=== PATIENT | female | born 1985 | race Two or more races ===

== ENCOUNTER 2020-07-12 14:11 | Outpatient (REF) | payer MEDICAID, SELFPAY | END 2020-07-12 14:12 | disposition home or self-care (01) | LOC: HO.LAB 14:11 | PROVIDERS: Visit Provider Internal Medicine | DX: Z20.822 Contact with and (suspected) exposure to COVID-19 (principal) | CPT/HCPCS: C9803; U0003; U0005 ==

== ENCOUNTER → 2021-08-16 11:21 | Outpatient (BNVA) | payer MEDICAID, SELFPAY | PROVIDERS: Visit Provider Advanced Practice Midwife | DX: O09.299 Supervision of pregnancy with other poor reproductive or obstetric history, unspecified trimester (principal); O09.529 Supervision of elderly multigravida, unspecified trimester; Z3A.00 Weeks of gestation of pregnancy not specified | CPT/HCPCS: 99202 ==

== ENCOUNTER 2021-09-07 11:16 | Outpatient (REF) | payer MEDICAID, SELFPAY ==
[2021-09-07 13:16] LABS: Hematocrit 35.7 % (37.0-47.0); Hemoglobin 11.7 g/dl (12.0-16.0); Mean Corpuscular HGB Conc 32.8 g/dl (31.0-35.0); Mean Corpuscular Hemoglobin 27.9 pg (27.0-33.0); Mean Platelet Volume 10.2 fL (9.4-12.3); Platelet Count 354 X10*3/uL (160-400); Red Cell Distribution Width 17.1 % (11.0-16.0); White Blood Count 13.4 X10*3/uL (4.8-10.8)
[2021-09-07 13:43] LABS: Alanine Aminotransferase 13 U/L (0-31); Aspartate Amino Transferase 16 U/L (5-31); Blood Urea Nitrogen 11 mg/dL (9-16); Estimated Glomerular Filt Rate > 60; Uric Acid 3.6 mg/dL (2.4-5.7)
[2021-09-07 13:58] LABS: Syphilis Screen Nonreactive (Nonreactive)
[2021-09-07 14:25] LABS: Creatinine Urine 165.56 mg/dL; Protein/Creatinine Ratio, Ur 0.08 (<0.2); Total Protein Urine Random 14 mg/dL (<12)
[2021-09-07 14:26] LABS: Fentanyl, urine Not Detected (Not Detect)
[2021-09-07 14:32] LABS: Amphetamine Screen Urine Not Detected (Not Detect); Barbiturates, Urine Not Detected (Not Detect); Cannabinoid Screen Urine Not Detected (Not Detect); Cocaine Screen Urine Not Detected (Not Detect); Opiate Screen Urine Not Detected (Not Detect); Phencyclidine Screen Urine Not Detected (Not Detect)
[2021-09-08 08:43] LABS: Benzodiazepines Screen Urine NOT DETECTED (Not Detect)
[2021-09-08 09:00] LABS: HBsAGNum1 0.17 S/CO (0.00-0.99); HIV AB/AG Nonreactive (Nonreactive); HIV Num 1 0.11 S/CO (0.00-0.99); Hepatitis B Surface Antigen Negative (Negative); ~HepC Num1 0.08 S/CO (0.00-0.79); ~Hepatitis C Antibody Nonreactive (Nonreactive)
[2021-09-09 02:17] LABS: Rubella IgG Antibody <0.90 Index
[2021-09-09 21:02] LABS: Hematocrit 35.5 % (35.0-45.0); Hemoglobin 11.8 g/dL (11.7-15.5); MCH 27.9 pg (27.0-33.0); MCV 83.9 fL (80.0-100.0); RBC 4.23 Million/uL (3.80-5.10); RDW 16.1 % (11.0-15.0)
== END 2021-09-07 11:17 | disposition home or self-care (01) ==
LOC: HO.LAB 11:16
PROVIDERS: PCP Internal Medicine; Visit Provider Advanced Practice Midwife
DX: O09.299 Supervision of pregnancy with other poor reproductive or obstetric history, unspecified trimester (principal)
CPT/HCPCS: 80307; 82565; 83020; 84156; 84450; 84460; 84520; 84550; 85014; 85018; 85027; 85041; 86762; 86780; 86787; 86803; 86850; 86900; 87086; 87147; 87340; 87389; 99212

== ENCOUNTER 2021-09-15 11:26 | Outpatient (REF) | payer MEDICAID, SELFPAY ==
[2021-09-15 14:41] LABS: CT PCR NOT DETECTED (Not Detect.); NG PCR NOT DETECTED (Not Detect.)
[2021-09-16 09:50] LABS: BV Int Neg Control Negative (Negative); BV Int Pos Control Positive (Positive)
[2021-09-24 08:31] LABS: HPV 16 RNA NOT DETECTED (NOT DETECTED); HPV mRNA E6/E7 rflx Detected (Not Detected)
== END 2021-09-15 11:27 | disposition home or self-care (01) ==
LOC: HO.LAB 11:26
PROVIDERS: Visit Provider Advanced Practice Midwife
DX: Z11.51 Encounter for screening for human papillomavirus (HPV) (principal); O09.291 Supervision of pregnancy with other poor reproductive or obstetric history, first trimester; O09.521 Supervision of elderly multigravida, first trimester; O26.891 Other specified pregnancy related conditions, first trimester; R03.0 Elevated blood-pressure reading, without diagnosis of hypertension; Z22.330 Carrier of Group B streptococcus; Z3A.10 10 weeks gestation of pregnancy
CPT/HCPCS: 81003; 87480; 87491; 87510; 87591; 87624; 87625; 87660; 88142; 99212

== ENCOUNTER 2021-09-23 08:33 | Outpatient (REF) | payer MEDICAID, SELFPAY ==
--- NOTE | ~2021-09-23 | US_ITS ---
EXAMINATION: OBSTETRICAL ULTRASOUND, FIRST TRIMESTER HISTORY: 35-year-old at 11.6 weeks of gestation NT screening COMPARISON: None TECHNIQUE: Real time transabdominal imaging with color and M-mode Doppler. FINDINGS: A single, live IUP CRL of 61.0 mm c/w 12.4wks is noted. Heart Rate: 167 beats per minute. Normal yolk sac seen. NT was 2.6.mm. NB Present The embryo appears sonographically wnl for this GA. An anechoic cyst measuring 2.4 x 2.2 x 2.8 cm is seen in the left ovary. The right ovary is normal. GESTATIONAL AGE: 1. Established GA: 11.6 wks 2. GA from AUA: 12.4 wks ESTIMATED DATE OF DELIVERY: 1. Established CHELY: 04/08/2022 2. CHELY from AUA: 04/03/2022 US/US OB 1T nuc measure IMPRESSION: 1. A single live IUP 2. Size equals dates 3. NT of 2.6 mm MFM Consultation: I reviewed the ultrasound findings along with significance of NT measurement. The NT of less than 3mm is generally reassuring. However, the sensitivity for T21 detection is only 60%. I reviewed the availability of serum aneuploidy screening which includes cell-free DNA and placental protein based tests. I discussed the sensitivity, false-positive rate, and other limitations associated with each test. I also reviewed the availability of invasive diagnostic tests that are associated small but definite risk of miscarriage. We also reviewed the differences between screening tests and diagnostic tests. After our discussion, she opted for the First trimester screening that is based on cell-free DNA or non-invasive testing (NIPT). The result will be faxed to your office in approximately 7 days. A follow up at 18 weeks for survey has been scheduled. Thank you very much for this referral. Total time 20 minutes. The time spent was devoted to counseling the patient about the disease and diagnosis, coordinating care including reviewing her records, pertinent lab data and studies, as well as discussing diagnostic evaluation and workup, plan therapeutic interventions and future disposition of care. This includes any additional research needed to obtain further information in formulating the plan of care of this patient. This note was generated with a voice recognition program. Please excuse any errors which may have been overlooked during my review of this note. Sometimes these errors may affect the content or meaning of a given sentence.
== END 2021-09-23 08:34 | disposition home or self-care (01) ==
LOC: HO.US 08:33
PROVIDERS: Visit Provider Advanced Practice Midwife
DX: O09.291 Supervision of pregnancy with other poor reproductive or obstetric history, first trimester (principal); O09.521 Supervision of elderly multigravida, first trimester; O26.891 Other specified pregnancy related conditions, first trimester; R03.0 Elevated blood-pressure reading, without diagnosis of hypertension; Z3A.11 11 weeks gestation of pregnancy
CPT/HCPCS: 76813

== ENCOUNTER 2021-10-13 11:38 | Outpatient (REF) | payer MEDICAID, SELFPAY | END 2021-10-13 11:39 | disposition home or self-care (01) | LOC: HO.LAB 11:38 | PROVIDERS: PCP Internal Medicine; Visit Provider Advanced Practice Midwife | DX: Z34.92 Encounter for supervision of normal pregnancy, unspecified, second trimester (principal); Z3A.14 14 weeks gestation of pregnancy | CPT/HCPCS: 81003; 99212 ==

== ENCOUNTER → 2021-11-10 11:25 | Outpatient (BNVA) | payer MEDICAID, SELFPAY | PROVIDERS: PCP Internal Medicine; Visit Provider Advanced Practice Midwife | DX: O09.522 Supervision of elderly multigravida, second trimester (principal); O09.292 Supervision of pregnancy with other poor reproductive or obstetric history, second trimester; Z3A.18 18 weeks gestation of pregnancy | CPT/HCPCS: 99212 ==

== ENCOUNTER 2021-11-17 09:01 | Outpatient (REF) | payer MEDICAID, SELFPAY ==
[2021-11-17 11:11] LABS: Glucose 1 Hour PP 50gm Dose 134 mg/dL (60-140)
[2021-11-17 11:51] LABS: Appearance Urine Clear; Color Urine Yellow; Glucose Urine UA Negative (Negative); Leukocyte Esterase Urine Moderate (2+) (Negative); Nitrite Urine Negative (Negative); Urine Blood Negative (Negative); Urine Ketones Negative (Negative); Urine Protein Negative (Neg-Trace)
[2021-11-17 11:52] LABS: UACC Culture Trigger YES
[2021-11-17 12:09] LABS: Bacteria Urine 2+ (None Seen); Hyaline Casts Urine 0-2 /LPF (0-2); RBC Urine 0-2 /HPF (0-2)
== END 2021-11-17 09:02 | disposition home or self-care (01) ==
LOC: HO.LAB 09:01
PROVIDERS: Visit Provider Advanced Practice Midwife
DX: Z32.01 Encounter for pregnancy test, result positive (principal)
CPT/HCPCS: 36415; 81001; 87086

== ENCOUNTER → 2021-12-08 09:38 | Outpatient (BNVA) | payer MEDICAID, SELFPAY | PROVIDERS: PCP Internal Medicine; Visit Provider Advanced Practice Midwife | DX: O09.522 Supervision of elderly multigravida, second trimester (principal); O09.292 Supervision of pregnancy with other poor reproductive or obstetric history, second trimester; Z3A.22 22 weeks gestation of pregnancy | CPT/HCPCS: 99212 ==

== ENCOUNTER 2022-06-21 23:47 | Emergency (ER) | payer MEDICAID, SELFPAY ==
--- NOTE | 2022-06-21 23:50 | ECG_ITS ---
Test Reason : CHEST PAIN Blood Pressure : / mmHG Vent. Rate : 083 BPM Atrial Rate : 083 BPM P-R Int : 182 ms QRS Dur : 078 ms QT Int : 388 ms P-R-T Axes : 045 040 005 degrees QTc Int : 455 ms Normal sinus rhythm Normal ECG No previous ECGs available Referred By: Generic ED Physician Electronically Signed By:ROBIN SAMANIEGO MD
[2022-06-22 00:02] LABS: MANUAL DIFF FLAG NO
[2022-06-22 00:03] VITALS: BP 177/101; PULSE 86; RESP 16; TEMP 36.2; O2SAT 99; BMI 30.9
[2022-06-22 00:08] LABS: Basophils Absolute Auto 0.1 X10*3/uL (0.0-0.2); Basophils Percent Auto 0.6 % (0-2); Eosinophils Absolute Auto 0.2 X10*3/uL (0.0-0.4); Eosinophils Percent Auto 2.5 % (0-4); Hematocrit 35.4 % (37.0-47.0); Hemoglobin 11.7 g/dl (12.0-16.0); Imm Gran Abs Auto 0.02 X10*3/uL (0.00-0.03); Imm Gran Pct Auto 0.2 % (0.0-0.4); Lymphocytes Absolute Auto 2.9 X10*3/uL (1.2-4.9); Lymphocytes Percent Auto 33.5 % (20-40); Mean Corpuscular HGB Conc 33.1 g/dl (31.0-35.0); Mean Corpuscular Hemoglobin 29.8 pg (27.0-33.0); Mean Corpuscular Volume 90.3 fL (80.0-98.0); Mean Platelet Volume 9.2 fL (9.4-12.3); Monocytes Absolute Auto 0.8 X10*3/uL (0.1-1.2); Monocytes Percent Auto 9.4 % (2-11); Neutrophils Absolute Auto 4.7 x10*3/uL (2.0-8.3); Neutrophils Percent Auto 53.8 % (45-73); Platelet Count 327 X10*3/uL (160-400); Red Blood Count 3.92 X10*6/uL (4.20-5.50); Red Cell Distribution Width 13.2 % (11.0-16.0); White Blood Count 8.7 X10*3/uL (4.8-10.8)
[2022-06-22 00:17] LABS: Anion Gap 12 (12-20); Blood Urea Nitrogen 13 mg/dL (9-16); Calcium 8.7 mg/dL (8.4-10.2); Carbon Dioxide 22 mmol/L (22-29); Chloride 109 mmol/L (96-108); Estimated Glomerular Filt Rate > 60; Glucose Random 135 mg/dL (60-115); Potassium 3.7 mmol/L (3.3-5.1); Sodium 139 mmol/L (135-145)
[2022-06-22 00:25] LABS: Troponin-I High Sensitivity < 2.7 ng/L (<3.5-17.0)
--- NOTE | 2022-06-22 00:35 | ED_ITS ---
HPI - Chest Pain General Chief Complaint: Chest Pain Stated Complaint: Cp, left arm pain Time Seen by Provider: 06/22/22 00:31 Source: patient Mode of arrival: ambulatory Limitations: no limitations History of Present Illness HPI narrative: Patient history of preeclampsia 3 months on labetalol and nifedipine for blood pressure control been complaining of left left chest and left arm pain started earlier today no nausea no vomiting no shortness of breath patient is supposed to take nifedipine along with labetalol but she taking labetalol 800 mg 3 times a day as with nifedipine she has gets headache Related Data Previous Rx's Medication Instructions Recorded pyridoxine (vitamin B6) 25 mg 25 mg PO TID #90 tabs 08/16/21 tablet vitamin with calcium 1 tab PO DAILY #30 tabs 11/10/21 no.72-iron 27 mg-folic acid 1 mg tablet ( Vitamins Plus Low Iron) hydralazine 50 mg tablet 50 mg PO QID #120 tabs 06/22/22 Allergies Allergy/AdvReac Type Severity Reaction Status Date / Time No Known Allergies Allergy Verified 12/08/21 09:46 Review of Systems Review of Systems: Yes all other systems are reviewed and are negative [facility] Family History Family History Mother HTN (hypertension) Father Asthma Sister Diabetes Social History Social History Household Members: Children Housing: Apartment Are you a primary career and guidance counselor to a significant other at home: No Do you presently have visiting nurse or other home services: No Alcohol intake: never Patient Tobacco Use Status: Never used Tobacco Smoked in Last 30 Days: No Use of substances other than those prescribed or required for medical reasons: No Advance Directives: No Advance Directives Information Provided: Yes Physical Exam Vital Signs: Vital Signs: Last Vital Signs Temp 97 F 06/22/22 03:42 Pulse 68 06/22/22 03:42 Resp 18 06/22/22 03:42 BP 166/94 H 06/22/22 03:42 Pulse Ox 99 06/22/22 03:42 O2 Del Method Room Air 06/22/22 03:42 BMI result Body Mass Index 30.9 Appearance: Alert. Oriented X3. No acute distress. Eyes: PERRLA, No Nystagmus ENT: Pharynx normal. Oral Mucosa moist Neck: Normal inspection. Neck supple. CVS: Normal heart rate and rhythm. Pulses normal. Respiratory: No respiratory distress. Equal air entry bilateral, no wheezing/rales/rhonchi Abdomen: Soft and nontender. Bowel sounds are present, no mass palpable, no CVA tenderness Skin: Skin warm and dry. Normal skin color. Normal skin turgor. Extremities: No lower extremity edema. No calf tenderness Neuro: Oriented X 3. No motor deficit. No sensory deficit.No cerebellar signs , cranial nerves II-XII intact Medications Administered Discontinued Medications Generic Name Dose Route Start Last Admin Trade Name Freq PRN Reason Stop Dose Admin Hydralazine HCl 25 mg 06/22/22 01:20 06/22/22 01:59 Hydralazine Hcl 25 Mg Tablet PO 06/22/22 01:21 25 mg ONCE ONE Administration Protocol Hydralazine HCl 10 mg 06/22/22 03:04 06/22/22 03:13 Hydralazine Hcl 20 Mg/Ml Vial IVPUSH 06/22/22 03:05 10 mg ONCE ONE Administration Protocol Medical Decision Making Medical Decision Making [facility] Narrative: Patient with uncontrolled hypertension secondary to noncompliance not taking her nifedipine for post hypertension. Patient refusing to take nifedipine as it gives her headache will start patient on hydralazine 50 mg every 6 hours patient received IV hydralazine and blood pressure has improved Lab Data [facility] Lab Attestation statement: I reviewed the patient's lab results. 06/21/22 23:59 06/21/22 23:59 Labs: Lab Results 06/21/22 06/21/22 06/21/22 Range/Units 23:58 23:59 23:59 WBC 8.7 (4.8-10.8) X10*3/uL RBC 3.92 L (4.20-5.50) X10*6/uL Hgb 11.7 L (12.0-16.0) g/dl Hct 35.4 L (37.0-47.0) % MCV 90.3 (80.0-98.0) fL MCH 29.8 (27.0-33.0) pg MCHC 33.1 (31.0-35.0) g/dl RDW 13.2 (11.0-16.0) % Plt Count 327 (160-400) X10*3/uL MPV 9.2 L (9.4-12.3) fL Immature Gran % (Auto) 0.2 (0.0-0.4) % Neut % (Auto) 53.8 (45-73) % Lymph % (Auto) 33.5 (20-40) % Cook % (Auto) 9.4 (2-11) % Eos % (Auto) 2.5 (0-4) % Baso % (Auto) 0.6 (0-2) % Lymph # (Auto) 2.9 (1.2-4.9) X10*3/uL Cook # (Auto) 0.8 (0.1-1.2) X10*3/uL Eos # (Auto) 0.2 (0.0-0.4) X10*3/uL Baso # (Auto) 0.1 (0.0-0.2) X10*3/uL Abs Immat Gran (auto) 0.02 (0.00-0.03) X10*3/uL Absolute Neuts (auto) 4.7 (2.0-8.3) x10*3/uL Absolute Nucleated RBC 0.000 (0.0-0.012) X10*3/uL Nucleated RBC % (auto) 0.0 (0.0-0.2) /100WBC Sodium 139 (135-145) mmol/L Potassium 3.7 (3.3-5.1) mmol/L Chloride 109 H (96-108) mmol/L Carbon Dioxide 22 (22-29) mmol/L Anion Gap 12 (12-20) BUN 13 (9-16) mg/dL Creatinine 0.90 (0.5-1.4) mg/dL Estim Creat Clear Calc 87.0 Estimated GFR > 60 Random Glucose 135 H (60-115) mg/dL Calcium 8.7 (8.4-10.2) mg/dL Troponin I High Sens < 2.7 (<3.5-17.0) ng/L Independent Interpretation I performed an independent interpretation of an: EKG Interpretation: Normal sinus rhythm heart rate 83 beats per minute no acute ST T wave changes no acute ischemia Discharge Plan Discharge Clinical Impression: Hypertension, uncontrolled Patient Disposition: Home, Self-Care Instructions: Chronic Hypertension (ED) Additional Instructions: Continue taking your labetalol as prescribed Start hydralazine 1 tablet 4 times a day Check blood pressure should be less than 140/90 Follow with your PCP if Blood pressure stays higher than 140/90 come to the ER Contin?e tomando rodriguez labetalol seg?n lo prescrito Comience hidralazina 1 tableta 4 veces al d?a Controlar la presi?n arterial debe ser inferior a 140/90 Siga con rodriguez PCP si la presi?n arterial se mantiene por encima de 140/90 acude a urgencias Prescriptions: New hydralazine 50 mg tablet 50 mg PO QID Qty: 120 0RF No Action pyridoxine (vitamin B6) 25 mg tablet 25 mg PO TID Qty: 90 1RF Vitamin Plus Low Iron 27 mg iron- 1 mg tablet 1 tab PO DAILY Qty: 30 11RF Print Language: Portuguese
[2022-06-22] MEDS: hydrALAZINE HCl 25 MG TABLET PO (01:59)
[2022-06-22 02:00] VITALS: BP 192/97; PULSE 80; RESP 18; TEMP 36.1; O2SAT 99
[2022-06-22 02:44] VITALS: BP 182/102; PULSE 76; RESP 18; TEMP 36.1; O2SAT 100
[2022-06-22] MEDS: hydrALAZINE HCl 20 MG/ML VIAL 10 MG IVPUSH (03:13)
[2022-06-22 03:42] VITALS: BP 166/94; PULSE 68; RESP 18; TEMP 36.1; O2SAT 99
== END 2022-06-22 04:37 | disposition home or self-care (01) ==
PROVIDERS: Emergency Provider Internal Medicine
DX: R07.89 Other chest pain (principal); M79.602 Pain in left arm; I10 Essential (primary) hypertension; Z79.899 Other long term (current) drug therapy
CPT/HCPCS: 36415; 80048; 84484; 85025; 93005; 96374; 99284; 99285

== ENCOUNTER 2022-08-11 14:48 | Emergency (ER) | payer MEDICAID, SELFPAY ==
--- NOTE | 2022-08-11 14:51 | ECG_ITS ---
Test Reason : CHEST PAIN Blood Pressure : / mmHG Vent. Rate : 091 BPM Atrial Rate : 091 BPM P-R Int : 166 ms QRS Dur : 080 ms QT Int : 370 ms P-R-T Axes : 047 033 009 degrees QTc Int : 455 ms Normal sinus rhythm Normal ECG When compared with ECG of 11-AUG-2022 14:50, Non-specific change in ST segment in Anterior leads T wave inversion less evident in Inferior leads T wave inversion no longer evident in Anterolateral leads Referred By: Beny Desai Electronically Signed By:ROBIN SAMANIEGO MD
[2022-08-11 14:53] VITALS: BP 154/70; PULSE 124
[2022-08-11 15:00] VITALS: BP 152/104; PULSE 100; RESP 18; TEMP 36.9; O2SAT 96; BMI 28.7
--- NOTE | 2022-08-11 15:00 | ED.GENADULT ---
HPI - General Adult General Chief complaint: General Medical Stated complaint: chest pains , per ems Time Seen by Provider: 08/11/22 16:04 Source: patient, RN notes reviewed, old records reviewed and digital imaging specialist Mode of arrival: EMS Limitations: language barrier History of Present Illness HPI narrative: 36-year-old female past medical history significant for elevated blood pressure for the last 4 months Patient reports that she gave 4 months ago and her blood pressure has been high ever since. She is on antihypertensive but does not know what she is taking It appears per med rec that she is on hydralazine 50 mg q.i.d. Patient states that she went to a follow-up appointment with her primary doctor today and was told that her blood pressure was high and she had to go to the hospital She was complaining of chest pain at the time On arrival to the ED, the patient's blood pressure is 152/104. She states that her chest pain has resolved She did get aspirin 324 and 1 sublingual nitro Related Data Previous Rx's Medication Instructions Recorded pyridoxine (vitamin B6) 25 mg 25 mg PO TID #90 tabs 08/16/21 tablet vitamin with calcium 1 tab PO DAILY #30 tabs 11/10/21 no.72-iron 27 mg-folic acid 1 mg tablet ( Vitamins Plus Low Iron) hydralazine 50 mg tablet 50 mg PO QID #120 tabs 06/22/22 Allergies Allergy/AdvReac Type Severity Reaction Status Date / Time No Known Allergies Allergy Verified 12/08/21 09:46 Review of Systems Constitutional: Constitutional: Reports as per HPI, Denies chills, Denies fatigue, Denies fever(s) and Denies headache(s) ENT: Denies headache(s) Cardiovascular: Cardiovascular: Reports chest pain and Denies dyspnea Respiratory: Respiratory: Denies cough and Denies dyspnea Gastrointestinal: Gastrointestinal: Denies abdominal pain, Denies constipation and Denies vomiting Genitourinary: Genitourinary: Denies dysuria Neurologic: Denies headache(s) and Denies focal weakness Endocrine: Endocrine: Denies fatigue [facility] Family History Family History Mother HTN (hypertension) Father Asthma Sister Diabetes Social History Social History Household Members: Children Housing: Apartment Are you a primary cattle care worker to a significant other at home: No Do you presently have visiting nurse or other home services: No Alcohol intake: never Patient Tobacco Use Status: Never used Tobacco Advance Directives: No Advance Directives Information Provided: No Physical Exam ED Vital Signs: Vital Signs - 24 hr 08/11/22 15:00 08/11/22 16:55 08/11/22 19:52 Temperature 98.4 F 99.2 F 98.1 F Pulse Rate 100 96 102 H Respiratory Rate 18 20 15 Blood Pressure 152/104 H 154/96 H 159/104 H Pulse Oximetry 96 100 99 Oxygen Delivery Method Aerosol Mask Room Air Room Air BMI result Body Mass Index 28.7 Const General: healthy appearing, comfortable, no acute distress, alert and awake Nutritional Appearance: well nourished Orientation/consciousness: patient oriented x3 HENMT Head: Yes normocephalic and Yes atraumatic Throat: Yes posterior oropharynx normal Eyes Eyelids: Yes eyelids normal Conjunctivae: conjunctivae normal Sclerae: sclerae normal Corneas: corneas normal Pupils: Equal, round and reactive pupils present EOM: EOMs intact bilaterally Neck Neck: Yes full ROM Resp Effort & Inspection: normal respiratory effort, able to speak in complete sentences and not labored Cardio Rate: regular rate Rhythm: regular rhythm GI Inspection: No distended Palpation (GI): Soft to palpation, not firm, nontender, no guarding and not rigid Auscultation: normoactive bowel sounds Skin General skin exam: no rashes or lesions noted and elasticity normal Neuro General: patient oriented x3 Cranial nerves: Yes Equal, round and reactive pupils present and Yes Bilaterally intact EOM present Cognition (Neuro): normal cognition Extrem Other: Moving all extremities well without any obvious deformities Course Course Course Narrative: RME performed by Germaine Ring PA-C. Patient is a 36 year old assigned female at presenting to the emergency department with elevated blood pressure. Labs ordered. Patient placed back in the waiting room pending room availability and results. Reevaluation(s) Reevaluation #1: Discussed with cardiology given the initial ischemic appearing EKG. Given the patient's troponins are both undetectable, Dr. Leal recommends discharge with outpatient follow-up. The patient remains chest pain-free. I discussed all this with the patient using a army helicopter pilot Time: 20:47 Medical Decision Making Medical Decision Making MDM Narrative: 36-year-old female with past medical history significant for hypertension presents for evaluation of high blood pressure and chest pain. Her chest pain resolved prior to arrival to receiving aspirin and nitroglycerin. Her EKG is sinus tachycardia rate 113 beats minute. She does have ST depressions in the inferior and lateral leads. No ST segment elevations. Differential Diagnosis Chest pain ACS PE Hypertension Lab Data 08/11/22 15:56 08/11/22 15:56 Labs: Lab Results 08/11/22 08/11/22 08/11/22 Range/Units 15:56 15:56 16:33 WBC 10.2 (4.8-10.8) X10*3/uL RBC 4.63 (4.20-5.50) X10*6/uL Hgb 14.0 (12.0-16.0) g/dl Hct 41.3 (37.0-47.0) % MCV 89.2 (80.0-98.0) fL MCH 30.2 (27.0-33.0) pg MCHC 33.9 (31.0-35.0) g/dl RDW 11.9 (11.0-16.0) % Plt Count 329 (160-400) X10*3/uL MPV 9.5 (9.4-12.3) fL Immature Gran % (Auto) 0.4 (0.0-0.4) % Neut % (Auto) 69.9 (45-73) % Lymph % (Auto) 15.6 L (20-40) % Bullitt % (Auto) 10.6 (2-11) % Eos % (Auto) 3.0 (0-4) % Baso % (Auto) 0.5 (0-2) % Lymph # (Auto) 1.6 (1.2-4.9) X10*3/uL Bullitt # (Auto) 1.1 (0.1-1.2) X10*3/uL Eos # (Auto) 0.3 (0.0-0.4) X10*3/uL Baso # (Auto) 0.1 (0.0-0.2) X10*3/uL Abs Immat Gran (auto) 0.04 H (0.00-0.03) X10*3/uL Absolute Neuts (auto) 7.1 (2.0-8.3) x10*3/uL Absolute Nucleated RBC 0.000 (0.0-0.012) X10*3/uL Nucleated RBC % (auto) 0.0 (0.0-0.2) /100WBC PT 11.8 (10.0-13.1) SEC INR 1.0 (0.9-1.1) APTT 33.5 (26.0-36.4) SEC D-Dimer High Sensitivty < 150 NG/ML Sodium 140 (135-145) mmol/L Potassium 3.5 (3.3-5.1) mmol/L Chloride 103 (96-108) mmol/L Carbon Dioxide 28 (22-29) mmol/L Anion Gap 13 (12-20) BUN 14 (9-16) mg/dL Creatinine 1.04 (0.5-1.4) mg/dL Estim Creat Clear Calc 72.5 Estimated GFR > 60 Random Glucose 109 (60-115) mg/dL Calcium 9.7 D (8.4-10.2) mg/dL Magnesium 2.4 (1.6-2.6) mg/dL Total Bilirubin 0.4 (0.0-1.0) mg/dL AST 19 (5-31) U/L ALT 22 (0-31) U/L Alkaline Phosphatase 66 (39-117) U/L Troponin I High Sens (<3.5-17.0) ng/L Total Protein 7.9 (6.5-8.0) g/dL Albumin 4.3 (3.5-5.0) g/dL 08/11/22 08/11/22 Range/Units 16:33 19:07 WBC (4.8-10.8) X10*3/uL RBC (4.20-5.50) X10*6/uL Hgb (12.0-16.0) g/dl Hct (37.0-47.0) % MCV (80.0-98.0) fL MCH (27.0-33.0) pg MCHC (31.0-35.0) g/dl RDW (11.0-16.0) % Plt Count (160-400) X10*3/uL MPV (9.4-12.3) fL Immature Gran % (Auto) (0.0-0.4) % Neut % (Auto) (45-73) % Lymph % (Auto) (20-40) % Bullitt % (Auto) (2-11) % Eos % (Auto) (0-4) % Baso % (Auto) (0-2) % Lymph # (Auto) (1.2-4.9) X10*3/uL Bullitt # (Auto) (0.1-1.2) X10*3/uL Eos # (Auto) (0.0-0.4) X10*3/uL Baso # (Auto) (0.0-0.2) X10*3/uL Abs Immat Gran (auto) (0.00-0.03) X10*3/uL Absolute Neuts (auto) (2.0-8.3) x10*3/uL Absolute Nucleated RBC (0.0-0.012) X10*3/uL Nucleated RBC % (auto) (0.0-0.2) /100WBC PT (10.0-13.1) SEC INR (0.9-1.1) APTT (26.0-36.4) SEC D-Dimer High Sensitivty NG/ML Sodium (135-145) mmol/L Potassium (3.3-5.1) mmol/L Chloride (96-108) mmol/L Carbon Dioxide (22-29) mmol/L Anion Gap (12-20) BUN (9-16) mg/dL Creatinine (0.5-1.4) mg/dL Estim Creat Clear Calc Estimated GFR Random Glucose (60-115) mg/dL Calcium (8.4-10.2) mg/dL Magnesium (1.6-2.6) mg/dL Total Bilirubin (0.0-1.0) mg/dL AST (5-31) U/L ALT (0-31) U/L Alkaline Phosphatase (39-117) U/L Troponin I High Sens < 2.7 < 2.7 (<3.5-17.0) ng/L Total Protein (6.5-8.0) g/dL Albumin (3.5-5.0) g/dL Independent Interpretation I performed an independent interpretation of an: EKG (Patient's initial EKG had significant ST depressions in leads 2, 3, AVF and V5 through 6. Repeat EKG approximately 2 hours later in the patient's pain is resolved shows resolution of the ST depressions.) Discharge Plan Discharge Clinical Impression: Chest pain, Abnormal ECG Patient Disposition: Home, Self-Care Instructions: Chest Pain (ED) Additional Instructions: Your initial EKG did show some changes that can be concerning. Your repeat EKG was back to normal Your blood work was within normal limits Dr. Hugo, cardiology would like to follow-up with you as an outpatient regarding your abnormal EKG Call the office Sunday to schedule an appointment Return to the ER for any new or worsening symptoms Prescriptions: No Action hydralazine 50 mg tablet 50 mg PO QID Qty: 120 0RF pyridoxine (vitamin B6) 25 mg tablet 25 mg PO TID Qty: 90 1RF Vitamin Plus Low Iron 27 mg iron- 1 mg tablet 1 tab PO DAILY Qty: 30 11RF Referrals: Timi Hugo MD [Physician] - (abnormal ekg)
[2022-08-11 15:59] LABS: MANUAL DIFF FLAG NO
[2022-08-11 16:02] LABS: Basophils Absolute Auto 0.1 X10*3/uL (0.0-0.2); Basophils Percent Auto 0.5 % (0-2); Eosinophils Absolute Auto 0.3 X10*3/uL (0.0-0.4); Hematocrit 41.3 % (37.0-47.0); Imm Gran Abs Auto 0.04 X10*3/uL (0.00-0.03); Imm Gran Pct Auto 0.4 % (0.0-0.4); Lymphocytes Absolute Auto 1.6 X10*3/uL (1.2-4.9); Lymphocytes Percent Auto 15.6 % (20-40); Mean Corpuscular HGB Conc 33.9 g/dl (31.0-35.0); Mean Corpuscular Hemoglobin 30.2 pg (27.0-33.0); Mean Corpuscular Volume 89.2 fL (80.0-98.0); Mean Platelet Volume 9.5 fL (9.4-12.3); Monocytes Absolute Auto 1.1 X10*3/uL (0.1-1.2); Monocytes Percent Auto 10.6 % (2-11); Neutrophils Absolute Auto 7.1 x10*3/uL (2.0-8.3); Neutrophils Percent Auto 69.9 % (45-73); Platelet Count 329 X10*3/uL (160-400); Red Blood Count 4.63 X10*6/uL (4.20-5.50); Red Cell Distribution Width 11.9 % (11.0-16.0); White Blood Count 10.2 X10*3/uL (4.8-10.8)
--- NOTE | 2022-08-11 16:14 | ECG_ITS ---
Test Reason : chest pain Blood Pressure : / mmHG Vent. Rate : 113 BPM Atrial Rate : 113 BPM P-R Int : 150 ms QRS Dur : 076 ms QT Int : 328 ms P-R-T Axes : 051 034 -26 degrees QTc Int : 449 ms Sinus tachycardia T wave abnormality, consider inferior ischemia T wave abnormality, consider anterolateral ischemia Abnormal ECG When compared with ECG of 21-JUN-2022 23:51, T wave inversion more evident in Inferior leads T wave inversion now evident in Anterolateral leads Referred By: Beny Desai Electronically Signed By:ROBIN SAMANIEGO MD
[2022-08-11 16:19] LABS: Alanine Aminotransferase 22 U/L (0-31); Albumin Level 4.3 g/dL (3.5-5.0); Alkaline Phosphatase 66 U/L (39-117); Anion Gap 13 (12-20); Aspartate Amino Transferase 19 U/L (5-31); Bilirubin Total 0.4 mg/dL (0.0-1.0); Blood Urea Nitrogen 14 mg/dL (9-16); Calcium 9.7 mg/dL (8.4-10.2); Carbon Dioxide 28 mmol/L (22-29); Chloride 103 mmol/L (96-108); Creatinine Clr Calc Pharmacy 72.5; Estimated Glomerular Filt Rate > 60; Glucose Random 109 mg/dL (60-115); Magnesium 2.4 mg/dL (1.6-2.6); Potassium 3.5 mmol/L (3.3-5.1); Sodium 140 mmol/L (135-145); Total Protein 7.9 g/dL (6.5-8.0)
[2022-08-11 16:48] LABS: Prothrombin Time 11.8 SEC (10.0-13.1)
[2022-08-11 16:50] LABS: D Dimer High Sensitivity < 150 NG/ML; Partial Thromboplastin Time 33.5 SEC (26.0-36.4)
[2022-08-11 16:55] VITALS: BP 154/96; PULSE 96; RESP 20; TEMP 37.3; O2SAT 100
[2022-08-11 17:14] LABS: Troponin-I High Sensitivity < 2.7 ng/L (<3.5-17.0)
[2022-08-11 19:38] LABS: Troponin-I High Sensitivity < 2.7 ng/L (<3.5-17.0)
[2022-08-11 19:52] VITALS: BP 159/104; PULSE 102; RESP 15; TEMP 36.7; O2SAT 99
== END 2022-08-11 21:13 | disposition home or self-care (01) ==
PROVIDERS: Physician Assistant; Physician Assistant Medical; Emergency Provider Emergency Medicine
DX: R07.9 Chest pain, unspecified (principal); R94.31 Abnormal electrocardiogram [ECG] [EKG]
CPT/HCPCS: 36415; 80053; 83735; 84484; 85025; 85379; 85610; 85730; 93005; 99283; 99284

== ENCOUNTER → 2022-08-28 10:50 | Outpatient (REF) | payer MEDICAID, SELFPAY ==
--- NOTE | 2022-08-28 10:53 | CA_ITS ---
Transthoracic Echocardiogram Patient (Last, First, Middle): Yovanny Rodrigez, Gender: Female Date of : 1985 Age: 36 Procedure Date: 08/28/2022 Procedure Type: Transthoracic Echocardiogram Location: OP Height: 160.02 cm Weight: 73.48 kg BSA: 1.77 m2 Heart Rate: 76 bpm BP: 135 / 80 mmHg Sleeping Car Service Attendant: TARIK Referring MD: Timi Hugo MD Symptoms: O16.3 - Unspecified maternal hypertension, third trimester Study Quality: Adequate ECG Rhythm: Sinus Conclusions: - The left ventricular systolic function is normal. The calculated ejection fraction is 57% by biplane method. - No obvious valvular pathology seen on this study. Findings Left Ventricle Normal left ventricular cavity size. There is normal left ventricular wall thickness. The left ventricular systolic function is normal. The calculated ejection fraction is 57% by biplane method. There is no evidence of regional wall motion abnormalities. Diastolic function is normal for age. Right Ventricle Normal right ventricular cavity size and systolic function. Atria Both atria are normal in size. Aortic Valve There is a normal trileaflet aortic valve. There is no aortic valve stenosis. There is no aortic valve regurgitation. Mitral Valve The mitral valve appears normal. There is trace mitral valve regurgitation. There is no mitral valve stenosis. Pulmonic Valve The pulmonic valve is likely normal. Tricuspid Valve Normal tricuspid valve structure. There is trace tricuspid valve regurgitation. There is no evidence of pulmonary hypertension. Great Vessels The asc aorta is normal in size. Venous The inferior vena cava was not well visualized. The inferior vena cava is normal in size. Pericardium/Pleural There is no evidence of pericardial effusion. Prior Study Comparison No prior study available for comparison. Recommendations, Care & Conclusions No obvious valvular pathology seen on this study. Measurements 2D Linear Measurements IVSd: 0.97 0.6-0.9/0.6-1.0 cm LVIDd: 4.46 3.9-5.3/4.2-5.9 cm LVIDd Index: 2.52 2.4-3.2/2.2-3.1 cm/m2 LVIDs: 2.98 2.0-3.6 cm LVPWd: 0.85 0.7-1.1 cm LA Diam: 3.30 2.7-3.8/3.0-4.0 cm LAIDs Index: 1.86 1.5-2.3 cm/m2 LV Mass: 164.95 67-162/88-224 g LV Mass Index: 93.19 43-95/49-115 g/m2 LVOT Diam: 1.90 3.0+(-)1.3 cm 2D Systolic Function EF 4C: 58.80 >55% EF 2C: 53.10 >55% EF BiP: 57.40 >55% Mitral Valve MV Pk E: 0.84 MV PK A: 0.59 MV Decel Time: 172.00 E/A: 1.40 E'Lateral: 10.20 E'Medial: 7.94 E/E' Med: 10.60 E/E' Lat: 8.20 PHT: 50.00 MVA PHT: 4.40 Decel Beauregard: 4.89 Aortic Valve AoV Pk Miller: 1.34 AoV Mn Miller: 1.03 AoV VTI: 0.28 AoV Pk Grad: 7.00 Aov Mn Grad: 5.00 CHULA Cont.VTI: 2.30 LVOT LVOT Pk Miller: 1.29 LVOT Mn Miller: 0.83 LVOT VTI: 0.23 LVOT Pk Grad: 7.00 LVOT Mn Grad: 3.00 LVOT Diam: 1.90 LVOT Area: 2.84 Diastolic Function MV Pk E: 0.84 MV Pk A: 0.59 E/A: 1.40 E'Medial: 7.94 E/E' Med: 10.60 E' Laterial: 10.20 E/E' Lat: 8.20 Right Ventricle TAPSE (mm): 19.50 TVS' Miller: 11.90 Tricuspid Valve TR Pk Miller: 2.00 TR Pk Grad: 16.00 Great Vessels Aorta Sinus of Valsalva: 2.90 2.0-3.5 cm Ao Asc: 2.50 2.1-3.4 cm Pulmonary Valve PV Pk Miller: 1.61 Peak PV Grad: 10.00 Updated in Other Vendor System with Status of Final Klaus Devries MD electronically signed on 08/29/2022 12:23:08 PM with status of Final
== END ==
LOC: HO.CARD 10:50
PROVIDERS: Visit Provider Internal Medicine Cardiovascular Disease
DX: R03.0 Elevated blood-pressure reading, without diagnosis of hypertension (principal); R94.31 Abnormal electrocardiogram [ECG] [EKG]
CPT/HCPCS: 93306

== ENCOUNTER 2022-10-30 14:16 | Outpatient (REF) | payer MEDICAID, SELFPAY ==
[2022-11-03 15:18] LABS: Renin 0.65 ng/mL/h (0.25-5.82)
[2022-11-04 14:43] LABS: Metanephrine, Free <25 pg/mL (<=57); Normetanephrines, Free 140 pg/mL (<=148); Total Metanephrine, Free 140 pg/mL (<=205)
[2022-11-06 06:59] LABS: Aldosterone/Renin Ratio 5.2 Ratio (0.9-28.9); Plasma Renin Activity 0.58 ng/mL/h (0.25-5.82)
== END 2022-10-30 14:17 | disposition home or self-care (01) ==
LOC: HO.LAB 14:16
PROVIDERS: PCP Nurse Practitioner Family; Visit Provider Internal Medicine Cardiovascular Disease
DX: I10 Essential (primary) hypertension (principal); R07.89 Other chest pain; R40.0 Somnolence; Z79.899 Other long term (current) drug therapy
CPT/HCPCS: 36415; 82088; 82530; 83835; 84244; 93005; 99202

== ENCOUNTER 2022-10-30 14:16 | Outpatient (AMB) | payer MEDICAID, SELFPAY ==
[2022-10-30 14:34] VITALS: BP 140/80; BMI 27.3
--- NOTE | 2022-10-30 14:34 | A.OFFVIS_ITS ---
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 She is a pleasant 37-year-old female with hypertension since her last . She had hypertension with prior but not persistent. She now presents here because of blood pressure remains difficult controlled. She is currently on labetalol 200 mg b.i.d. as well as hydrochlorothiazide which is taking. She is currently not taking hydralazine therapy. She says she has been still having issues with blood pressure. She has poor sleep pattern. She has not had any workup for secondary hypertension. She also complained intermittent episode of chest discomfort. This is not clearly exertional in nature. She is referred here for further evaluation. [facility] Medical History Uncontrolled hypertension Family History Mother HTN (hypertension) Father Asthma Sister Diabetes Social History Household Members: Children Both parents involved: No Housing: Apartment Are you a primary memory care director to a significant other at home: No Do you presently have visiting nurse or other home services: No 75 years or older and lives alone: No Alcohol intake: never Patient Tobacco Use Status: Never used Tobacco Female Reproductive History Menstrual Age of Menarche: 12 Review of Systems Const Reports no additional complaints Eyes Reports no additional complaints Card Reports chest pain, Denies leg edema, Denies lightheadedness, Denies palpitations and Denies dyspnea Resp Reports no additional complaints and Denies dyspnea GI Reports no additional complaints Reports no additional complaints Skin/Breast Reports system reviewed and no additional complaints, except as documented Neuro Reports no additional complaints Endo Reports no additional complaints and Denies palpitations Physical Exam Vital Signs: Last Vital Signs BP 140/80 H 10/30/22 14:34 BMI result Body Mass Index 27.3 Const General: cooperative, comfortable, no acute distress, alert, awake and anxious Nutritional Appearance: overweight Orientation/consciousness: patient oriented x3 Limitations: no limitations HEENT Head: Yes normocephalic and Yes atraumatic Neck Neck: Yes trachea midline, Yes supple and Yes no JVD Resp Auscultation: clear to auscultation bilaterally Cardio Jugular venous distension: no JVD Palpation: normal PMI Rate: regular rate Rhythm: regular rhythm Heart sounds: S1 normal heart sound present, S2 normal heart sound present, no click, no gallops, no murmurs and no rubs Bruits: no renal bruits GI Auscultation: normal bowel sounds Skin General skin exam: no rashes or lesions noted Neuro General: patient oriented x3 and no focal motor deficits Extrem General: Yes no clubbing, cyanosis or edema Office Procedures EKG Details: EKG shows sinus tachycardia with normal EKG 00965-[id number], Complete Assessment & Plan Assessment & Plan (1) Atypical chest pain: Code(s): R07.89 - Other chest pain Plan: Patient intermittent episodes of chest discomfort is atypical for myocardial ischemia with risk factors of hypertension. Suggest exercise treadmill stress test to evaluate for exercise-induced symptoms as well as hemodynamic response as well as stew evaluate for EKG response to exercise. If this is negative noncardiac cause of chest pain need to be evaluated. (2) Hypertension, uncontrolled: Code(s): I10 - Essential (primary) hypertension Plan: Blood pressure remains uncontrolled. Need to workup for secondary causes of hypertension. This was discussed with her. Will suggest home sleep study, renal duplex, endocrine workup for further assessment for secondary hypertension. Meanwhile will increase labetalol to 300 mg b.i.d.. Advised stress mitigation strategies. Also advise low-salt diet. Regular physical activity and weight loss program was recommended. Maintain adequate hydration. Follow up in the clinic in 6 weeks time, sooner p.r.n.. Thank you for allowing me to partake in her care (3) Uncontrolled hypertension: Code(s): I10 - Essential (primary) hypertension Orders: Orders CA stress test 10/30/22 R07.89 - Other chest pain RT home sleep study 10/30/22 I10 - Essential (primary) hypertension, R40.0 - Somnolence US renal doppler 10/30/22 I10 - Essential (primary) hypertension Aldosterone 10/30/22 I10 - Essential (primary) hypertension Aldost/Renin 10/30/22 I10 - Essential (primary) hypertension Renin 10/30/22 I10 - Essential (primary) hypertension Cortisol, Free 10/30/22 I10 - Essential (primary) hypertension Metanephrines, Plasma 10/30/22 I10 - Essential (primary) hypertension Medications: New labetalol 200 mg PO BID Discontinued hydralazine Discontinued Reason: Patient no longer taking 50 mg PO QID 120 tabs 0RF Coding Level of Care Code New Pt Level 4 (11964) Diagnoses Atypical chest pain R07.89 Hypertension, uncontrolled I10 CPT Codes EKG - CPT: 90777-Spmfqcyzymjkqkomp, Complete ([id number])
== END 2022-10-30 15:50 | disposition home or self-care (01) ==
PROVIDERS: Visit Provider Internal Medicine Cardiovascular Disease
DX: R07.89 Other chest pain (principal); I10 Essential (primary) hypertension; R00.0 Tachycardia, unspecified
CPT/HCPCS: 93010; 99204

== ENCOUNTER → 2022-12-11 10:07 | Outpatient (REF) | payer MEDICAID, SELFPAY ==
--- NOTE | 2022-12-11 10:09 | CA_ITS ---
Acquisition Time: 2022-12-11 10:36:21 Total Exercise Time: 00:09:13 Test Indications: CP Medications: SEE H Protocol: EMILY Max HR: 164 BPM 89% of Pred: 184 BPM Max BP: 148/080 mmHG Max Work Load: 10.4 METS Exercise stress test exercise 9 min 13 sec of Emily protocol achieving 89% MPHR, without anginal symptoms, without arrhythmias seen through artifact, with normotensive response to exercise, with ST scooping Test reviewed with Dr. Devries. Referred By: Timi Hugo Overread By: Lillian Rodriguez
== END ==
LOC: HO.CARD 10:07
PROVIDERS: PCP Nurse Practitioner Family; Visit Provider Internal Medicine Cardiovascular Disease
DX: R07.89 Other chest pain (principal)
CPT/HCPCS: 93017

== ENCOUNTER → 2022-12-11 10:09 | Outpatient (BNV) | payer MEDICAID, SELFPAY | PROVIDERS: PCP Nurse Practitioner Family; Visit Provider Nurse Practitioner | DX: R07.89 Other chest pain (principal) | CPT/HCPCS: 93016; 93018 ==

== ENCOUNTER 2022-12-22 08:54 | Outpatient (REF) | payer MEDICAID, SELFPAY ==
--- NOTE | ~2022-12-22 | US_ITS ---
EXAMINATION: ULTRASOUND RENAL WITH DOPPLER CLINICAL INFORMATION: Essential hypertension. COMPARISON: None. TECHNIQUE: Real-time grayscale, color Doppler, and duplex Doppler evaluation of the kidneys and renal vasculature was performed. FINDINGS: RENAL MEASUREMENTS: Right: 11.0 x 3.8 x 5.2 cm (Sag x AP x TV) Left: 10.2 x 4.8 x 5.2 cm (Sag x AP x TV) The renal parenchyma appears normal. No hydronephrosis or nephrolithiasis. DOPPLER INTERROGATION: AORTA: Mid aorta: 69 cm/sec RIGHT MAIN RENAL ARTERY: Proximal: 116 cm/sec Mid: 94 cm/sec Distal: 70 cm/sec LEFT MAIN RENAL ARTERY: Proximal: 114 cm/sec Mid: 129 cm/sec Distal: 167 cm/sec RENAL-AORTIC RATIO (RAR): Right: 1.7 Left: 2.4 SEGMENTAL RESISTIVE INDICES: Right: 0.61-0.68 Left: 0.53-0.63 RENAL VEINS: Right: Patent with normal waveform. Left: Patent with normal waveform. US/US renal BI IMPRESSION: No evidence of renal artery stenosis.
--- NOTE | ~2022-12-22 | US_ITS ---
EXAMINATION: ULTRASOUND RENAL WITH DOPPLER CLINICAL INFORMATION: Essential hypertension. COMPARISON: None. TECHNIQUE: Real-time grayscale, color Doppler, and duplex Doppler evaluation of the kidneys and renal vasculature was performed. FINDINGS: RENAL MEASUREMENTS: Right: 11.0 x 3.8 x 5.2 cm (Sag x AP x TV) Left: 10.2 x 4.8 x 5.2 cm (Sag x AP x TV) The renal parenchyma appears normal. No hydronephrosis or nephrolithiasis. DOPPLER INTERROGATION: AORTA: Mid aorta: 69 cm/sec RIGHT MAIN RENAL ARTERY: Proximal: 116 cm/sec Mid: 94 cm/sec Distal: 70 cm/sec LEFT MAIN RENAL ARTERY: Proximal: 114 cm/sec Mid: 129 cm/sec Distal: 167 cm/sec RENAL-AORTIC RATIO (RAR): Right: 1.7 Left: 2.4 SEGMENTAL RESISTIVE INDICES: Right: 0.61-0.68 Left: 0.53-0.63 RENAL VEINS: Right: Patent with normal waveform. Left: Patent with normal waveform. US/US renal doppler IMPRESSION: No evidence of renal artery stenosis.
== END 2022-12-22 08:55 | disposition home or self-care (01) ==
LOC: HO.US 08:54
PROVIDERS: PCP Nurse Practitioner Family; Visit Provider Internal Medicine Cardiovascular Disease
DX: I10 Essential (primary) hypertension (principal)
CPT/HCPCS: 76775; 93975

== ENCOUNTER → 2023-01-10 13:08 | Outpatient (REF) | payer MEDICAID, SELFPAY | LOC: HO.SL 13:08 | PROVIDERS: PCP Nurse Practitioner Family; Visit Provider Internal Medicine Cardiovascular Disease | DX: Z13.89 Encounter for screening for other disorder (principal) ==

== ENCOUNTER → 2023-03-13 13:11 | Outpatient (REF) | payer MEDICAID, SELFPAY | LOC: HO.SL 13:11 | PROVIDERS: PCP Nurse Practitioner Family; Visit Provider Internal Medicine Cardiovascular Disease | DX: Z13.89 Encounter for screening for other disorder (principal) ==

== ENCOUNTER 2024-05-06 10:40 | Outpatient (REF) | payer MEDICAID, SELFPAY ==
[2024-05-06 12:04] LABS: Anion Gap 12 (12-20); Blood Urea Nitrogen 16 mg/dL (9-16); Calcium 8.7 mg/dL (8.4-10.2); Carbon Dioxide 24 mmol/L (22-29); Chloride 109 mmol/L (96-108); Estimated Glomerular Filt Rate > 60; Glucose Random 107 mg/dL (60-115); Potassium 3.9 mmol/L (3.3-5.1); Sodium 141 mmol/L (135-145)
--- OUTSIDE RECORDS SUMMARY | 2024-05-06 12:46 | XMS_ITS | Encounter Summary ---
Author Organization [facility] Address [address] [place] [address] Care Team Providers Care Door Repairman Name Role Phone Sahara Lopez ECONOMIC RESEARCH ANALYST Primary Care Provider [phone] Hannah Gould NP Primary Care Provider [phone] Encounter Details Date Type Department Care Team (Late st Contact Info) Description 12/01/2022 Orders Only [facility] MEDICINE [address] [place] [address] [phone] Provider, MD Cory Social History Tobacco Use Types Packs/Day Years Used Date Smoking Tobacco: Never Smokeless Tobacco: Never Alcohol Use Standard Drinks/Week Comments Never 0 (1 standard drink = 0.6 oz pur e alcohol) Depression Answer Date Recorded Patient Health Questionnaire-9 Score 0 09/20/2022 Depression Answer Date Recorded Patient Health Questionnaire-2 Score 0 09/20/2022 Comments Unknown Sex and Gender Information Value Date Recorded Sex Assigned at Female 01/09/2022 10:37 AM EDT Legal Sex Female 10:37 AM EDT Gender Identity Female 01/09/2022 10:37 AM EDT Sexual Orientation Straight 01/09/2022 10 :37 AM EDT documented as of this encounter Plan of Treatment Upcoming Encounters Date Type Department Care Team (Late st Contact Info) Description 05/14/2024 10:00 AM EST Clinical Support [facility] [address] [place] [address] [phone] documented as of this encounter Procedures Procedure Name Priority Date/Time Associated Diagnosis Comments US RENAL DOPPLER Routine 12/22/2022 9:34 AM EDT US RENAL BI Routine 12/22/2022 9:34 AM EDT PAP/HPV Routine 09/15/2021 documented in this encounter Results * US RENAL BI (12/22/2022 9:34 AM EDT) Anatomical Region Laterality Modality Abdomen Ultrasound 12/22/2022 9:34 AM EDT Narrative 12/27/2022 11:01 AM EDT ? [facility] ?[address] ?[place] [address] ? Ultrasound Report ? Signed ? Patient: JazminYovanny Mao ?MR#: [id number] ? : 1985 ?Acct:[id number] ? Age/Sex: 37 / F ?ADM Date: 12/22/22 ? Loc: HO.US ? Attending Dr: Timi Hugo MD ? Ordering Physician: Timi Hugo MD ?? Date of Service: 12/22/22 ?? Procedure(s): US renal BI ?? Accession Number(s): [id number] ? cc: Sahara Lopez [employer] ROBOTICIST; Timi Hugo MD ? EXAMINATION: ?? ULTRASOUND RENAL WITH DOPPLER ? CLINICAL INFORMATION: ?? Essential hypertension. ? COMPARISON: ?? None. ? TECHNIQUE: ?? Real-time grayscale, color Doppler, and duplex Doppler evaluation of ?? the kidneys and renal vasculature was performed. ? FINDINGS: ?? RENAL MEASUREMENTS: ?? Right: 11.0 x 3.8 x 5.2 cm (Sag x AP x TV) ?? Left: 10.2 x 4.8 x 5.2 cm (Sag x AP x TV) ? The renal parenchyma appears normal. No hydronephrosis or ?? nephrolithiasis. ? DOPPLER INTERROGATION: ?? AORTA: ?? Mid aorta: 69 cm/sec ? RIGHT MAIN RENAL ARTERY: ?? Proximal: 116 cm/sec ?? Mid: 94 cm/sec ?? Distal: 70 cm/sec ? LEFT MAIN RENAL ARTERY: ?? Proximal: 114 cm/sec ?? Mid: 129 cm/sec ?? Distal: 167 cm/sec ? RENAL-AORTIC RATIO (RAR): ?? Right: 1.7 ?? Left: 2.4 ? SEGMENTAL RESISTIVE INDICES: ?? Right: 0.61-0.68 ?? Left: 0.53-0.63 ? RENAL VEINS: ?? Right: Patent with normal waveform. ?? Left: Patent with normal waveform. ? US/US renal BI ?? IMPRESSION: ?? No evidence of renal artery stenosis. ? Dictated By: ?Adis Marvin MD ? Signed By: ?<Electronically signed by Adis Marvin MD in OV> ?10/18/23 1057 ? DD/ 0934 ? TD/TT: ? Parlor Maid: GEOVANNI ? Procedure Note Donotuseinterpreter, Image - 12/27/[address] [address] Ultrasound Report Signed Patient: Yovanny Rodrigez MR#: [id number] : 1985Acct:[id number] Age/Sex: 37 / FADM Date: 12/22/22 Loc: HO.US Attending Dr: Timi Hugo MD Ordering Physician: Timi Hugo MD Date of Service: 12/22/22 Procedure(s): US renal BI Accession Number(s): [id number] cc: Sahara Lopez [employer] SYSTEM[employer] ROBOTICIST; Timi Hugo MD EXAMINATION: ULTRASOUND RENAL WITH DOPPLER CLINICAL INFORMATION: Essential hypertension. COMPARISON: None. TECHNIQUE: Real-time grayscale, color Doppler, and duplex Doppler evaluation of the kidneys and renal vasculature was performed. FINDINGS: RENAL MEASUREMENTS: Right: 11.0 x 3.8 x 5.2 cm (Sag x AP x TV) Left: 10.2 x 4.8 x 5.2 cm (Sag x AP x TV) The renal parenchyma appears normal. No hydronephrosis or nephrolithiasis. DOPPLER INTERROGATION: AORTA: Mid aorta: 69 cm/sec RIGHT MAIN RENAL ARTERY: Proximal: 116 cm/sec Mid: 94 cm/sec Distal: 70 cm/sec LEFT MAIN RENAL ARTERY: Proximal: 114 cm/sec Mid: 129 cm/sec Distal: 167 cm/sec RENAL-AORTIC RATIO (RAR): Right: 1.7 Left: 2.4 SEGMENTAL RESISTIVE INDICES: Right: 0.61-0.68 Left: 0.53-0.63 RENAL VEINS: Right: Patent with normal waveform. Left: Patent with normal waveform. US/US renal BI IMPRESSION: No evidence of renal artery stenosis. Dictated By: Adis Marvin MD Signed By: <Electronically signed by Adis Marvin MD in OV> 12/27/22 1057 DD/ 0934 TD/TT: Parlor Maid: GEOVANNI us [facility] External Provider IMG US PROCEDURES Final Result * US RENAL DOPPLER (12/22/2022 9:34 AM EDT) Anatomical Region Laterality Modality Abdomen Ultrasound 12/22/2022 9:34 AM EDT Narrative 12/27/2022 11:01 AM EDT ? [facility] ?[address] ?[place] [address] ? Ultrasound Report ? Signed ? Patient: Yovanny Rodrigez ?MR#: [id number] ? : 1985 ?Acct:[id number] ? Age/Sex: 37 / F ?ADM Date: 12/22/22 ? Loc: HO.US ? Attending Dr: Timi Hugo MD ? Ordering Physician: Tmii Hugo MD ?? Date of Service: 12/22/22 ?? Procedure(s): US renal doppler ?? Accession Number(s): [id number] ? cc: Sahara Lopez NP; Timi Hugo MD ? EXAMINATION: ?? ULTRASOUND RENAL WITH DOPPLER ? CLINICAL INFORMATION: ?? Essential hypertension. ? COMPARISON: ?? None. ? TECHNIQUE: ?? Real-time grayscale, color Doppler, and duplex Doppler evaluation of ?? the kidneys and renal vasculature was performed. ? FINDINGS: ?? RENAL MEASUREMENTS: ?? Right: 11.0 x 3.8 x 5.2 cm (Sag x AP x TV) ?? Left: 10.2 x 4.8 x 5.2 cm (Sag x AP x TV) ? The renal parenchyma appears normal. No hydronephrosis or ?? nephrolithiasis. ? DOPPLER INTERROGATION: ?? AORTA: ?? Mid aorta: 69 cm/sec ? RIGHT MAIN RENAL ARTERY: ?? Proximal: 116 cm/sec ?? Mid: 94 cm/sec ?? Distal: 70 cm/sec ? LEFT MAIN RENAL ARTERY: ?? Proximal: 114 cm/sec ?? Mid: 129 cm/sec ?? Distal: 167 cm/sec ? RENAL-AORTIC RATIO (RAR): ?? Right: 1.7 ?? Left: 2.4 ? SEGMENTAL RESISTIVE INDICES: ?? Right: 0.61-0.68 ?? Left: 0.53-0.63 ? RENAL VEINS: ?? Right: Patent with normal waveform. ?? Left: Patent with normal waveform. ? US/US renal doppler ?? IMPRESSION: ?? No evidence of renal artery stenosis. ? Dictated By: ?Adis Marvin MD ? Signed By: ?<Electronically signed by Adis Marvin MD in OV> ?10/ 1057 ? DD/ 0934 ? TD/TT: ? Parlor Maid: GEOVANNI ? Procedure Note [place], Cece - 12/27/2022 [place] [address] Ultrasound Report Signed Patient: Yovanny Rodrigez MR#: [id number] : 1985Acct:[id number] Age/Sex: 37 / FADM Date: 12/22/22 Loc: HO.US Attending Dr: Timi Hugo MD Ordering Physician: Timi Hugo MD Date of Service: 12/22/22 Procedure(s): US renal doppler Accession Number(s): [id number] cc: Sahara Lopez [employer] ROBOTICIST; Timi Hugo MD EXAMINATION: ULTRASOUND RENAL WITH DOPPLER CLINICAL INFORMATION: Essential hypertension. COMPARISON: None. TECHNIQUE: Real-time grayscale, color Doppler, and duplex Doppler evaluation of the kidneys and renal vasculature was performed. FINDINGS: RENAL MEASUREMENTS: Right: 11.0 x 3.8 x 5.2 cm (Sag x AP x TV) Left: 10.2 x 4.8 x 5.2 cm (Sag x AP x TV) The renal parenchyma appears normal. No hydronephrosis or nephrolithiasis. DOPPLER INTERROGATION: AORTA: Mid aorta: 69 cm/sec RIGHT MAIN RENAL ARTERY: Proximal: 116 cm/sec Mid: 94 cm/sec Distal: 70 cm/sec LEFT MAIN RENAL ARTERY: Proximal: 114 cm/sec Mid: 129 cm/sec Distal: 167 cm/sec RENAL-AORTIC RATIO (RAR): Right: 1.7 Left: 2.4 SEGMENTAL RESISTIVE INDICES: Right: 0.61-0.68 Left: 0.53-0.63 RENAL VEINS: Right: Patent with normal waveform. Left: Patent with normal waveform. US/US renal doppler IMPRESSION: No evidence of renal artery stenosis. Dictated By: Adis Marvin MD Signed By: <Electronically signed by Adis Marvin MD in OV> 12/27/22 1057 DD/ 0934 TD/TT: Parlor Maid: GEOVANNI [facility] External Provider IMG US PROCEDURES Final Result * Hm Pap Smear (09/15/2021) Historical Provider HEALTH MAINTENANCE Final Result documented in this encounter Visit Diagnoses Not on filedocumented in this encounter Additional Health Concerns Assessment Noted Time PHQ-9 Depression Total Score: 0 09/21/19 23 10:00 AM EDT documented as of this encounter Care Teams Door Repairman Relationship Specialty Start Date End Date Sahara Lopez FNP [address] [place] [address] PCP - General Family Medicine 12/16/21 10/25/23 Hannah Gould NP [address] [place] [address] PCP - General Family Medicine 10/26/23 documented as of this encounter
--- OUTSIDE RECORDS SUMMARY | 2024-05-06 12:46 | XMS_ITS | Encounter Summary ---
Author Organization [facility] [employer] [facility] Address [address] [place] [address] Care Team Providers Care Derrick Boat Leverman Name Role Phone Hannah Gould NP Primary Care Provider [phone] Reason for Visit * Reason Onset Date Comments New Med Request 05/01/2024 Encounter Details Date Type Department Care Team ([facility] st Contact Info) Description 05/01/2024 Telephone [facility] [address] [place] [address] Hannah Gould NP [address] [place] [address] New Med Request Social History Tobacco Use Types Packs/Day Years Used Date Smoking Tobacco: Never Smokeless Tobacco: Never Alcohol Use Standard Drinks/Week Comments Never 0 (1 standard drink = 0.6 oz pur e alcohol) Depression Answer Date Recorded Patient Health Questionnaire-9 Score 0 09/20/2022 Housing Stability Answer Date Recorded What is your housing situation today? I have faraz allison 12/27/[address] you li ve. Do you have problems with any of the following? None of the above 12/27/2022 Food Insecurity Answer Date Recorded Within the past 12 months, y ou worried that your food would run out before you got money to buy more: Never True 12/27/2022 Within the past 12 months,th e food you bought just didn't last and you didn't have enough money to get more: Never True Transportation Answer Date Recorded In the past 12 months, has l ack of transportation kept you from medical appts, meetings, work or from getting things needed for daily living? No 12/27/2022 Utilities Answer Date Recorded In the past 12 months, has t he electric, gas, oil or water company threatened to shut off services in your home? No 12/27/2022 Depression Answer Date Recorded Patient Health Questionnaire-2 Score 0 09/20/2022 Comments Unknown Sex and Gender Information Value Date Recorded Sex Assigned at Female 01/09/2022 10:37 AM EDT Legal Sex Female 10:37 AM EDT Gender Identity Female 01/09/2022 10:37 AM EDT Sexual Orientation Straight 01/09/2022 10 :37 AM EDT documented as of this encounter Miscellaneous Notes * Telephone Encounter - Amelie Flores RN - 05/06/2024 11:10 AM EST TC placed to pt via Repeatit translator and interpreter (Geremias ID#[id number]) per below provider messages. Pt booked for depo injection and BP check on 05/14/24 at 10 AM. Pt verbalized understanding of below messages and denies questions or concerns at this time. ----- Message from Carlos Reyes MD sent at 05/06/2024 10:35 AM EST ----- This patient needs appointment for next week in person for blood pressure recheck and she needs to restart getting Depo shot for contraception I recommended to restart amlodipine and labetalol. Recheck BMP. Check blood pressure at home. Follow-up with team nurse next week for BP recheck and restart Depo shot for contraception. * Telephone Encounter - Laina Mcclellan RN - 05/01/2024 4:16 PM EST Tc to pt via etrigg id: [id number] in regards to medication request refill for Labetalol 100 mg that was prescribed at the ED, pt reports it was prescribed a long time ago but today they are now out of the medication. Pt advised that they would need to be evaluated at the clinic and advised to come into [facility] to be evaluated tomorrow during business hours to receive refill. Pt reports their kids have no school tomorrow and will not be able to come in to the clinic. Pt provided [facility] Sunday hours and reports that will not work with their schedule as well and requesting for their provider to refill Labetalol 100 mg script. Pt advised that a provider will not refill the Labetalol without them being evaluated first. Pt was last ov was on 09/20/22 with Sahara Lopez CNP. Pt denies cp, sob, headaches, blurry vision, smoking or drinking alcohol. No available appts with PCP and recommended for pt to come in to [facility]. Pt reports BP systolic is usually in the 120's with the combination of the Labetalol and Amlodipine. Pt reports when they just take the amlodipine their systolic is in th 140's. Pt reports checking their BP daily but does not document their readings. Pt advised if they experience high BP with chest pain, sob and 10 headache to go to ED to be evaluated. Pt reminded of [facility] hours, s/s of htn and when to notify pur office or emergency services. Pt verbalized understanding and message forwarded to PCP as an fyi. ED precautions provided and pt verbalized understanding. * Telephone Encounter - Dakota Ambriz - 05/01/2024 1:59 PM EST Tc from pt informing received script medication in the ER for blood pressure medication labetalol (Normodyne) 100 MG tablet , as of today pt has no more medication and states needs medication script by PCP because Bp gives her issues with out medication. documented in this encounter Plan of Treatment Upcoming Encounters Date Type Department Care Team (Late st Contact Info) Description 05/14/2024 10:00 AM EST Clinical Support [facility] [address] [place] [address] documented as of this encounter Visit Diagnoses Not on filedocumented in this encounter Additional Health Concerns Assessment Noted Time PHQ-9 Depression Total Score: 0 09/21/19 10:00 AM EDT documented as of this encounter Care Teams Derrick Boat Leverman Relationship Specialty Start Date End Date Hannah Gould NP [address] [place] [address] PCP - General Family Medicine 10/26/23 documented as of this encounter
--- OUTSIDE RECORDS SUMMARY | 2024-05-06 12:46 | XMS_ITS | Encounter Summary ---
Author Organization [employer] Address [address] [facility] [address] [place] [address] Care Team Providers Care Enhanced Environmental Operator Name Role Phone Hannah Gould ANCELMO Primary Care Provider [phone] Reason for Visit * Reason Comments Hypertension Encounter Details Date Type Department Care Team ([facility] st Contact Info) Description 05/06/2024 10:20 AM EST Office Visit [facility] [address] [place], [place] [id number] Name, MD Carols [address] [place] [address] Essential hypertension (Primary Dx) Social History Tobacco Use Types Packs/Day Years Used Date Smoking Tobacco: Never Smokeless Tobacco: Never Alcohol Use Standard Drinks/Week Comments Never 0 (1 standard drink = 0.6 oz pur e alcohol) Depression Answer Date Recorded Patient Health Questionnaire-9 Score 0 09/20/2022 Housing Stability Answer Date Recorded What is your housing situation today? I have farazaurelio allison 12/27/[address] you [...] AM EDT documented as of this encounter Last Filed Vital Signs Vital Sign Reading Time Taken Comments Blood Pressure 167/105 05/06/2024 10:14 AM EST Pulse 98 05/06/2024 10:14 AM EST Temperature 36.7 ??C (98.1 ??F) 05/06/2024 10:[address] Respiratory Rate 16 05/06/2024 10:14 AM EST Oxygen Saturation 98% 05/06/2024 10:14 AM EST Inhaled Oxygen Concentration - - Weight 85.7 kg (189 lb) 05/06/2024 10:14 AM EST Height - - Body Mass Index 33.48 09/20/2022 9:53 AM EDT documented in this encounter Progress Notes * Patrick Mcdaniel MA - 05/06/2024 10:20 AM EST 167 105 * Carlos Reyes MD - 05/06/2024 10:20 AM EST Subjective Patient ID: Yovanny Dixon is a 38 y.o. female who presents for Hypertension. Patient comes for a follow-up visit. She is asymptomatic but her blood pressure is high. She has a personal history of essential hypertension. She started to have hypertension during her first . She had negative workup for secondary hypertension in the past. She has been treated with labetalol and amlodipine in the past with good improvement but needs refills for both medications. The patient tells me she is sexually active. Last menstrual period was last week. She was previously usingDepo shot for contraception but stopped and is wishing to restart. She has a blood pressure monitorat home. Review of Systems Constitutional: Negative for chills and fever. HENT: Negative for sore throat. Respiratory: Negative for cough, shortness of breath and wheezing. Cardiovascular: Negative for chest pain, palpitations and leg swelling. Gastrointestinal: Negative for abdominal pain. Visit Vitals BP (!) 167/105 (BP Location: Left arm, Patient Position: Sitting, BP Cuff Size: Adult) Pulse 98 Temp 98.1 ??F (36.7 ??C) (Temporal) Resp 16 Wt 189 lb (85.7 kg) SpO2 98% BMI 33.48 kg/m?? Smoking Status Never BSA 1.95 m?? Objective Physical Exam Constitutional: Appearance: Normal appearance. Cardiovascular: Rate and Rhythm: Normal rate and regular rhythm. Heart sounds: No murmur heard. No gallop. Pulmonary: Effort: Pulmonary effort is normal. No respiratory distress. Breath sounds: Normal breath sounds. No wheezing. Musculoskeletal: Right lower leg: No edema. Left lower leg: No edema. Neurological: Mental Status: She is alert. Assessment/Plan Diagnoses and all orders for this visit: Essential hypertension Comments: I recommended to restart amlodipine and labetalol. Recheck BMP. Check blood pressure at home. Follow-up with team nurse next week for BP recheck and restart Depo shot for contraception. Orders: - amLODIPine (Norvasc) 10 MG tablet; Take 1 tablet (10 mg) by mouth Once per day. - Basic Metabolic Panel; Future Other orders - labetalol (Normodyne) 100 MG tablet; Take 1 tablet (100 mg) by mouth 2 times daily. documented in this encounter Plan of Treatment Upcoming Encounters Date Type Department Care Team (Late st Contact Info) Description 05/14/2024 10:00 AM EST Clinical Support [facility] [address] [place] [phone] documented as of this encounter Procedures Procedure Name Priority Date/Time Associated Diagnosis Comments BASIC METABOLIC PANEL Routine 05/06/2024 10:42 AM EST Essential hypertension documented in this encounter Results * (ABNORMAL) Basic Metabolic Panel (05/06/2024 10:42 AM EST) Sodium 141 135 - 145 mmol/L [facility] Potassium 3.9 3.3 - 5.1 mmol/L [facility] Chloride 109(H) 96 - 108 mmol/L [facility] Carbon Dioxide 24 22 - 29 mmol/L [facility] Anion Gap 12 12 - 20 [facility] Urea Nitrogen (BUN) 16 9 - 16 mg/dL [facility] Creatinine, Serum 0.78 0.5 - 1.4 mg/dL [facility] Estimated Glomerular Filt Rate >60 [facility] Comment:Chronic Kidney Disea se: Estimated GFR < 60 mL/min/1.91m4Hjnqej Kidney Disease: Estimated GFR < 15 mL/min/1.73m2 Glucose 107 60 - 115 mg/dL [facility] Calcium 8.7 8.4 - 10.2 mg/dL [facility] Blood Venous blood specimen / Unknown 05/06/2024 10:42 AM EST 05/06/2024 11:35 AM EST us Carlos Name MD LAB BLOOD ORDERABLES Final Resul t [facility] [address] [place] [phone] [phone] documented in this encounter Visit Diagnoses Diagnosis Essential hypertension- Primary Unspecified essential hypertension documented in this encounter Additional Health Concerns Assessment Noted Time PHQ-9 Depression Total Score: 0 09/21/19 23 10:00 AM EDT documented as of this encounter Care Teams Enhanced Environmental Operator Relationship Specialty Start Date End Date Hannah Gould NP [address] [place] [address] PCP - General Family Medicine 10/26/23 documented as of this encounter
--- OUTSIDE RECORDS SUMMARY | 2024-05-06 12:46 | XMS_ITS | Encounter Summary ---
Author Organization [employer] [facility] Address [address] [place] [address] 7[address] [place] [address] Care Team Providers Care Aircraft Refueller Name Role Phone Sahara Lopez Primary Care Provider [phone] Hannah Gould NP Primary Care Provider [phone] Encounter Details Date Type Department Care Team (Latest Contact Info) Description 07/06/2020 Abstract [facility] CONVERSIONS Dental, Provider, DDS Social History Tobacco Use Types Packs/Day Years Used Date Smoking Tobacco: Never Assessed Comments Unknown Sex and Gender Information Value [...] Description 05/14/2024 10:00 AM EST Clinical Support [facility] [address] [place] [address] documented as of this encounter Visit Diagnoses Not on filedocumented in this encounter Care Teams Aircraft Refueller Relationship Specialty Start Date End Date Sahaar Lopez FNP [address] [place] [address] PCP - General Family Medicine 12/16/21 10/25/23 Hannah Gould NP [address] [place] [address] PCP - General Family Medicine 10/26/23 documented as of this encounter
--- OUTSIDE RECORDS SUMMARY | 2024-05-06 12:46 | XMS_ITS | Clinical Summary ---
Author Organization [employer] Address [address] [facility] 7t [place] [address] Care Team Providers Care Postal Service Window Clerk Name Role Phone Hannah Gould ANCELMO Primary Care Provider [phone] Allergies No known active allergies Medications hydroCHLOROthiaz terrence (HYDRODiuril) 12.5 MG tabletIndication s:Essential hypertension Take 1 tablet by oral route daily for 1 week then increase to two tablets (25mg) daily 90 tablet 11 07/12/19 23 Active medroxyPROGESTER one (Depo-Provera) 150 MG/ML injection Inject 1 mL (150 mg) into the shoulder, thigh, or buttocks every 3 (three) months. 08/31/19 23 Active labetalol (Normodyne) 100 MG tablet Take 1 tablet (100 mg) by mouth 2 times daily. 180 tablet 2 05/06/19 25 026 Active amLODIPine (Norvasc) 10 MG tabletIndication s:Essential hypertension Take 1 tablet (10 mg) by mouth Once per day. 90 tablet 1 05/06/19 25 Active labetalol (Normodyne) 100 MG tablet Take 1 tablet (100 mg) by mouth 2 times daily. 180 tablet 2 08/31/19 23 025 Discontinued(Re order (will not trigger notification to Pharmacy)) amLODIPine (Norvasc) 10 MG tabletIndication s:Essential hypertension TAKE 1 TABLET BY MOUTH EVERY DAY 90 tablet 1 12/13/19 24 025 Discontinued(Re order (will not trigger notification to Pharmacy)) Active Problems Problem Noted Date Diagnosed Date AMA (advanced maternal age) multigravida 35+ 04/2022 Chronic hypertension 07/11/2022 Assessment & Plan (08/14/2022 5:49 PM EDT): Pt w preeclampsia/HTN now with ongoing elevated BP possible worsen with anxiety from seeing ongoing elevated BP-denies depression Here w elevated BP and HR again -possible from dced BB ? asymptomatic Pt is 4 old baby -ok to continue HDCTZ -currently taking 12.5 mg BID --advised to take 2 tab together x now for 25 mg daily in am --if stable with that at next apt she could have prescribe 25 mg dose ( ok w ) -resume labetalol -states she did tolerate well lower doses of med --will start labetalol 100 mg BID and to check BP in next 3 days at home if then still > 140/90 To increase to 2 tab BID -schedule apt to f BP w her PCP in 2 weeks -discussed w p to do labs including TSH but pt would like to see PCP to have all labs including x annual together and will need To monitor chem -last chem K + was wnl but borderline -advised pt to discuss w her ENTRY LEVEL FINANCE about her contraceptions -states receiving injection but not sure which med is getting -likely progesterone based but advise to make sure to f w her ENTRY LEVEL FINANCE in regards which med is getting w her elevated BP -alarm signs and symptoms discussed today -advised to continue care w already schedule apt w cards on 10/30/2022 -will need to f w PCP at next visit if fsaw ophthalmology in last year and x microalb Class 1 obesity 07/11/2022 Family history of sickle cell trait 07/11/2022 History of pre-eclampsia 07/11/2022 HTN in , chronic 07/11/2022 Rubella non-immune status, antepartum 07/11/2022 Uses Greenlandic as primary spoken language 07/12/19 23 GBS bacteriuria 09/07/2021 Encounters Date Type Department Care Team Description 05/06/2024 10:20 AM EST Office Visit [facility] [address] [place] [address] Name, MD Carlos Essential hypertension (Primary Dx) 05/06/2024 Telephone [facility] [address] [place] [address] Name, MD Carlos 05/01/2024 Telephone [facility] [address] [place] [address] Hannah Gould NP New Med Request from Last 3 Months Immunizations Name Administration Dates Next Due Tdap 01/20/2022 Social History Tobacco Use Types Packs/Day Years Used Date Smoking Tobacco: Never Smokeless Tobacco: Never Tobacco Cessation:Counseling Given: Not Answered Alcohol Use Standard Drinks/Week Comments Never 0 [...] Orientation Straight 01/09/2022 10 :37 AM EDT Last Filed Vital Signs Vital Sign Reading Time Taken Comments Blood Pressure 167/105 05/06/2024 10:14 AM EST Pulse 98 05/06/2024 10:14 AM EST Temperature 36.7 ??C (98.1 ??F) 05/06/2024 10:[address] Respiratory Rate 16 05/06/2024 10:14 AM EST Oxygen Saturation 98% 05/06/2024 10:14 AM EST Inhaled Oxygen Concentration - - Weight 85.7 kg (189 lb) 05/06/2024 10:14 AM EST Height 160 cm (5' 3 ) 09/20/2022 9:53 AM EDT Body Mass Index 33.48 09/20/2022 9:53 AM EDT Plan of Treatment Upcoming Encounters Date Type Department Care Team (Late st Contact Info) Description 05/14/2024 10:00 AM EST Clinical Support [address] [address] Health Maintenance Due Date Last Done Comments Alcohol/Substance Use Screening 1998 Family Planning (PISQ) 2001 Hepatitis B Vaccines (1 of 3 - 19+ 3-dose series) 2005 Cervical Cancer Screening 09/15/2022 HPV/Cotest 09/15/2022 09/15/2021, 09/15/2021 Pap Smear 09/15/2022 09/15/2021 Depression Screening 09/21/2023 09/20/2022, 09/20/2022 SDOH Screening 09/21/2023 09/20/2022 COVID-19 Vaccine (3 - 2023-2 5 season) 2023 06/22/2021, 06/01/2021 Influenza Vaccine (#1) 2023 Tobacco Screening 01/24/2024 01/23/2023 Lipid Panel 06/02/2025 06/02/2020 DTaP/Tdap/Td Vaccines (2 - T d or Tdap) 01/21/2032 01/20/2022 Zoster Vaccines (1 of 2) 2036 RSV Patients and Patients Aged 60 years or older (1 - 1-dose 75+ series) 2061 HIV Screening Completed 09/07/2021, 06/02/2020 Hepatitis C Screening Completed 09/07/2021 , 06/02/2020 HIB Vaccines Aged Out No longer eligi ble based on patient's age to complete this topic HPV Vaccines Aged Out No longer eligi ble based on patient's age to complete this topic Hepatitis A Vaccines Aged Out No long er eligible based on patient's age to complete this topic IPV Vaccines Aged Out No longer eligi ble based on patient's age to complete this topic Meningococcal Vaccine Aged Out No keyon rommel eligible based on patient's age to complete this topic Pneumococcal Vaccine: Pediatrics (0 to 5 Years) and At-Risk Patients (6 to 49) Years) Aged Out No longer eligible b ased on patient's age to complete this topic RSV under 20 months Aged Out No longe r eligible based on patient's age to complete this topic Rotavirus Vaccines Aged Out No longer eligible based on patient's age to complete this topic Procedures Procedure Name Priority Date/Time Associated Diagnosis Comments BASIC METABOLIC PANEL Routine 05/06/2024 10:42 AM EST Essential hypertension ZZZ HISTORICAL HPV E6/E7 RFLX TIAN 16 18/45 Routine 09/15/2021 11:26 AM EDT HM PAP/HPV Routine 09/15/2021 ZZZ HISTORICAL HIV AB/AG Routine 09/07/2021 11:50 AM EDT LIPID PANEL, STANDARD Routine 06/02/2020 8:31 AM EDT from Last 3 Months or Most Recently Relevant to Health Maintenance Results * (ABNORMAL) Basic Metabolic Panel (05/06/2024 10:42 AM EST) Sodium 141 135 - 145 mmol/L [facility] Potassium 3.9 3.3 - 5.1 mmol/L [facility] Chloride 109(H) 96 - 108 mmol/L [facility] Carbon Dioxide 24 22 - 29 mmol/L [facility] Anion Gap 12 12 - 20 [facility] Urea Nitrogen (BUN) 16 9 - 16 mg/dL [facility] Creatinine, Serum 0.78 0.5 - 1.4 mg/dL [facility] Estimated Glomerular Filt Rate >60 [facility] Comment:Chronic Kidney Disea se: Estimated GFR < 60 mL/min/1.40i8Ckezdt Kidney Disease: Estimated GFR < 15 mL/min/1.73m2 Glucose 107 60 - 115 mg/dL [facility] Calcium 8.7 8.4 - 10.2 mg/dL [facility] Blood Venous blood specimen / Unknown 05/06/2024 10:42 AM EST 05/06/2024 11:35 AM EST us Carlos Reyes MD LAB BLOOD ORDERABLES Final Resul t Performing Organization Address City/[facility]/ZIP Co de Phone Number [facility] [address] [place] [address] [phone] * (ABNORMAL) HPV E6/E7 RFLX TIAN 16 18/45 (09/15/2021 11:26 AM EDT) HPV 16 RNA NOT DETECTED NOT DETECTED [facility] HPV 18/45 RNA NOT DETECTED NOT DETECTED [facility] Comment: Methodology: Winding Inspector Mediated Amplification Cervical sources are required for HPV testing. If a vaginal source from a patient who has had a total hysterectomy with removal of cervix was submitted, please contact the testing laboratory for alternative testing options. THIS TEST WAS PERFORMED AT: [facility] [address] [place] [address],[facility] [place], [place] ??[phone] SHONNA HAILE MD HPV mRNA E6/E7 rflx Detected(A) Not Detected [facility] Comment: Methodology: Winding Inspector-Mediated Amplification This assay detects E6/E7 viral messenger RNA (mRNA) from 14 high-risk HPV types (16,18,31,33,35,39,45,51,52,56,58,59,66,68). Cervical sources are required for HPV testing. If a vaginal source from a patient who has had a total hysterectomy with removal of cervix was submitted, please contact the testing laboratory for alternative testing options. For additional information, please refer to http://education.WalkMe/faq/LWS190m5 (This link if provided for information/ educational purposes only.) THIS TEST WAS PERFORMED AT: [facility] [address] [place] [address],[address] [place], [place] ??[phone] SHONNA HAILE MD 09/15/2021 11:2 6 AM EDT us Roseanne Coweta HISTORICAL/NON ORDERABLE LABS Fi nal Result [facility] [address] [place] [address], * Hm Pap Smear (09/15/2021) Historical Provider HEALTH MAINTENANCE Final Result * HIV AB/AG (09/07/2021 11:50 AM EDT) Pathologist [facility] HIV AB/AG Nonreactive Nonreactive [facility] Comment: HIV-1 p24 Ag and/or HIV-1/HIV-2 Ab not detected. ?? A test result that is nonreactive does not exclude the possibility of exposure to or infection with HIV-1 and/or HIV-2. Nonreactive results in this assay for individuals with prior exposure to HIV-1 and/or HIV-2 may be due to antigen and antibody levels that are below the limit of detection of this assay. ?? The [employer] HIV Ag/Ab Combo assay result and supplemental assay results should be interpreted in conjunction with the patient's clinical presentation, history and other laboratory results. ??If the results are inconsistent with clinical evidence, additional testing is suggested to confirm the result. Hepatitis C Antibody Nonreactive Nonreactive [facility] Comment: Antibodies to HCV not detected; does not exclude early acute HCV infection. Hepatitis B Surface Antigen Negative Negative [facility] 09/07/2021 11:5 0 AM EDT Roseanne Leblanc HISTORICAL/NON ORDERABLE LABS Fi nal Result [facility] [address] [place] [address], * LIPID PANEL, STANDARD (06/02/2020 8:31 AM EDT) Pathologist [facility] Chol/HDLC Ratio 3.1 <5.0 (calc) [facility] Cholesterol, Total 172 <200 mg/dL [facility] HDL Cholesterol 56 > OR = 50 mg/dL [facility] LDL Cholesterol 99 mg/dL (calc) [facility] Comment: Reference range: <100 ?? Desirable range <100 mg/dL for primary prevention; ?? <70 mg/dL for patients with CHD or diabetic patients ?? with > or = 2 CHD risk factors. ?? LDL-C is now calculated using the José-Dumont ?? calculation, which is a validated novel method providing ?? better accuracy than the Friedewald equation in the ?? estimation of LDL-C. ?? José SS et al. FREDRICK. 2013;310(19): 3623-7954 ?? (http://education.[employer]/faq/HMP327) Non-HDL Cholesterol 116 <130 mg/dL (calc) [facility] Comment: For patients with diabetes plus 1 major ASCVD risk ?? factor, treating to a non-HDL-C goal of <100 mg/dL ?? (LDL-C of <70 mg/dL) is considered a therapeutic ?? option. Triglycerides 82 <150 mg/dL [facility] 06/02/2020 8:31 AM EDT us Historical Provider LAB BLOOD ORDERABLES Margie kiser Result [facility] [address] from Last 3 Months or Most Recently Relevant to Health Maintenance Insurance [employer] Care Teams Postal Service Window Clerk Relationship Specialty Start Date End Date Hannah Gould NP [address] [place] [address] PCP - General Family Medicine 10/26/23
--- OUTSIDE RECORDS SUMMARY | 2024-05-06 12:46 | XMS_ITS | Encounter Summary ---
Author Organization [employer] Address [address] [facility] 7[address] [place] [address] Care Team Providers Care Flame Channeler Name Role Phone Hannah Gould ANCELMO Primary Care Provider [phone] Encounter Details Date Type Department Care Team ([facility] st Contact Info) Description 05/06/2024 Telephone [facility] [address] [place], [place] [phone] Name, MD Carlos [address] [place] [address] Social History Tobacco Use Types Packs/Day Years [...] Encounter - Amelie Flores RN - 05/06/2024 11:20 AM EST TC placed to pt via [employer] horizontal resaw operator (Geremias ID#[id number]) per below provider messages. Pt booked for [...] recheck and restart Depo shot for contraception. documented in this encounter Plan of Treatment Upcoming Encounters Date Type Department Care Team (Late st Contact Info) Description 05/14/2024 10:00 AM EST Clinical Support [facility] [address] [place] [address] documented as of this encounter Visit Diagnoses Not on filedocumented in this encounter Additional Health Concerns Assessment Noted Time PHQ-9 Depression Total Score: 0 09/21/19 23 10:00 AM EDT documented as of this encounter Care Teams Flame Channeler Relationship Specialty Start Date End Date Hannah Gould NP [address] [place] [address] PCP - General Family Medicine 10/26/23 documented as of this encounter
== END 2024-05-06 10:41 | disposition home or self-care (01) ==
LOC: HO.HHCL 10:40
PROVIDERS: Visit Provider Internal Medicine Geriatric Medicine
DX: I10 Essential (primary) hypertension (principal)
CPT/HCPCS: 36415; 80048